=== PATIENT | female | born 1990 | race Caucasian/White ===

== ENCOUNTER → 2016-02-26 | Outpatient (CLI) | payer MEDICAID ==
[~2016-02-26] MED LIST: BROMFED DM COU118 ML PO; DIAZEPAM PR; LAMICTAL 100 M100 MG PO; LEVAQUIN 750 M750 MG PO; MEDROL 4MG. DOSE4 MG PO; NEURONTIN 100100 MG PO; TOPAMAX100 MG PO; ZITHROMAX Z PA250 MG PO
[2016-02-26 15:48] LABS: HEMOGLOBIN 10.9 g/dL (12.2-16.2); LYMPH # 2.6 K/mm3 (0.7-4.5); LYMPH % 37.4 % (10-50.0)
[2016-02-26 16:07] LABS: BUN 12 mg/dL (7-18)
[2016-02-26 16:08] LABS: GFR (ESTIMATED) 89 ML/MIN (59-)
[2016-02-28 08:40] LABS: Vitamin B12 376 pg/mL (211-946)
[2016-03-02 03:36] LABS: Total 1,25-Dihydroxy,Vitamin D 45 pg/mL (.)
[2016-03-04 14:40] LABS: 1,25-Dihydroxy, Vitamin D-2 <10 pg/mL (.); 1,25-Dihydroxy, Vitamin D-3 41 pg/mL (.)
== END ==
LOC: LAB 15:33
PROVIDERS: Nurse Practitioner Family
DX: G40.909 Epilepsy, unspecified, not intractable, without status epilepticus (principal); R53.83 Other fatigue; R63.5 Abnormal weight gain